=== PATIENT | female | born 1970 | race Caucasian/White ===

== ENCOUNTER 2017-05-24 23:43 | Inpatient (IN) | payer MEDICARE, MEDICAID ==
[~2017-05-24] VITALS: Ht 154.9 cm; Wt 71.2 kg
[~2017-05-24 23:43] MED LIST: ALD25T PO; CAP25T PO; CARV-50 PO; CIP250T PO; CIP500T PO; FOLI-43 PO; FURO40TA4 PO; HYDR-3566 PO; MULT-1074 PO; ONDA4TAB6 PO; PHEN-873 PO; POTA20TA19 PO
[2017-05-25 00:24] LABS: BASOPHILS % (AUTO) 0.5 % (0-1); EOSINOPHILS # (AUTO) 0.5 X10'3 (0-0.9); EOSINOPHILS % (AUTO) 7.2 % (0-6); HEMATOCRIT 33.4 % (35.0-45.0); HEMOGLOBIN 11.3 g/dl (12.0-16.0); LYMPHOCYTES # (AUTO) 2.8 X10'3 (1.1-4.8); LYMPHOCYTES % (AUTO) 41.8 % (21-51); MEAN CORPUSCULAR HEMOGLOBIN 34.6 PG (27.0-31.0); MEAN CORPUSCULAR HGB CONC 33.9 % (33.0-36.5); MEAN CORPUSCULAR VOLUME 102.1 FL (78-98); MEAN PLATELET VOLUME 9.5 FL (7.4-10.4); MONOCYTES # (AUTO) 0.4 X10'3 (0-0.9); MONOCYTES % (AUTO) 6.6 % (2-12); NEUTROPHILS # (AUTO) 2.9 X10'3 (1.8-7.7); NEUTROPHILS % (AUTO) 43.9 % (42-75); PLATELET COUNT 178 X10'3 (140-440); RED BLOOD COUNT 3.27 X10'6 (4.20-5.60); RED CELL DISTRIBUTION WIDTH 13.2 % (11.5-14.5); WHITE BLOOD COUNT 6.7 X10'3 (4.5-11.0)
[2017-05-25 00:44] LABS: ALANINE AMINOTRANSFERASE 80 U/L (12-78); ALBUMIN 3.8 G/DL (3.4-5.0); ALBUMIN/GLOBULIN RATIO 1.1 (1.1-1.5); ALKALINE PHOSPHATASE 90 IU/L (46-116); ANION GAP 5 (8-16); ASPARTATE AMINO TRANSFERASE 45 U/L (10-37); BILIRUBIN,TOTAL 0.4 MG/DL (0.1-1.0); BLOOD UREA NITROGEN 25 MG/DL (7-18); CALCIUM 8.8 MG/DL (8.5-10.1); CHLORIDE 105 MMOL/L (99-107); CREATININE 1.39 MG/DL (0.40-0.90); GLUCOSE 103 MG/DL (70-104); PARTIAL THROMBOPLASTIN TIME 24 SECONDS (22-32); POTASSIUM 4.1 MMOL/L (3.5-5.1); PROTHROMBIN TIME 10.5 SECONDS (9.0-12.0); SODIUM 141 MMOL/L (135-145); TOTAL PROTEIN 7.2 G/DL (6.4-8.2); eGFR 41 ML/MIN
[2017-05-25 00:47] LABS: CLARITY,URINE Clear (Clear); COLOR,URINE Yellow (Yellow); GLUCOSE, URINE Negative (Neg); KETONES,URINE Negative (Neg); LEUKOCYTE ESTERASE ,URINE Negative (Neg); NITRITES, URINE Negative (Neg); OCCULT BLOOD,URINE Negative (Neg); PROTEIN,URINE Negative (Neg)
[2017-05-25 00:48] LABS: UA COLLECTION TYPE CLN CATCH MIDSTREAM
[2017-05-25 01:00] LABS: URINE HCG NEGATIVE (NEG)
[2017-05-25 02:40] LABS: LIPASE 290 U/L (73-393)
[2017-05-25] MEDS ORDERED: furosemide 10 MG/1 ML 10ml inj IV ONE (03:45)
[2017-05-25] MEDS ORDERED: acetaminophen 325mg tablet PO PRN (08:15)
[2017-05-25] MEDS ORDERED: HYDROcodone/acetaminophen 5mg/325mg tablet PO PRN (08:15)
[2017-05-25] MEDS ORDERED: potassium Cl 40MEQ/NS 500ml 500 ML IV PRN ×2 (08:15)
[2017-05-25] MEDS ORDERED: magnesium hydroxide 30ml (MOM) UD suspension PO PRN (08:15)
[2017-05-25] MEDS ORDERED: magnesium 2GM in 50ml NS 50 ML IV PRN (08:15)
[2017-05-25] MEDS ORDERED: magnesium Cl slow-release 64mg tablet PO PRN (08:15)
[2017-05-25] MEDS ORDERED: HYDROcodone/acetaminophen 10/325mg tab PO PRN (08:15)
[2017-05-25] MEDS ORDERED: magnesium 4gm in 100ml NS 100 ML IV PRN (08:15)
[2017-05-25] MEDS ORDERED: SINCALIDE IV ONE (08:15)
[2017-05-25] MEDS ORDERED: albuterol 2.5 MG/3 ML nebule NEB PRN (08:15)
[2017-05-25] MEDS ORDERED: NORMAL SALINE IV ONE (08:15)
[2017-05-25] MEDS ORDERED: ondansetron/PF 4mg/2ml inj IV PRN (08:15)
[2017-05-25] MEDS ORDERED: potassium Cl 20 mEq SR tablet PO PRN ×2 (08:15)
[2017-05-25] MEDS ORDERED: mag hydrox/Alum hydrox/simeth 30ml oral suspension PO PRN (08:15)
[2017-05-25] MEDS ORDERED: lisinopril 20mg tablet PO SCH (08:36)
[2017-05-25] MEDS ORDERED: carVEDilol 12.5mg tablet PO ONE ×2 (08:40→13:15)
[2017-05-25] MEDS ORDERED: spironolactone 25 MG tablet PO ONE (08:40)
[2017-05-25 09:30] VITALS: BP 91/48
[2017-05-25] MEDS ORDERED: furosemide 40mg tablet PO SCH (13:00)
[2017-05-25 13:30] VITALS: BP_SYST 80; BP_SYST 82; BP_DIAS 42; BP_DIAS 53
[2017-05-25 15:15] VITALS: BP 94/55
[2017-05-25 17:15] VITALS: BP 94/55
[2017-05-25] MEDS ORDERED: heparin, porcine 5000 units/ml vial SQ SCH (20:00)
[2017-05-25] MEDS ORDERED: potassium Cl 20 mEq SR tablet PO SCH (20:00)
[2017-05-25] MEDS ORDERED: carVEDilol 12.5mg tablet PO SCH (20:00)
[2017-05-26] MEDS ORDERED: multivitamins, therapeutics tablet PO SCH (08:00)
[2017-05-26] MEDS ORDERED: spironolactone 25 MG tablet PO SCH (08:00)
[2017-05-26] MEDS ORDERED: K and/or MAG REPLACEMENT MC SCH (08:00)
[2017-05-26] MEDS ORDERED: folic acid 1mg tablet PO SCH (08:00)
== END 2017-05-25 17:20 | disposition home or self-care (01) | DRG 291 ==
LOC: ER 23:43 → ED HOLD 05-25 08:15 → PCU 3S 05-25 09:20
PROVIDERS: ADMIT Internal Medicine; ATTEND Internal Medicine
PROC: CF141ZZ Planar Nuclear Medicine Imaging of Gallbladder using Technetium 99m (Tc-99m) (ICD-10-PCS; principal; 2017-05-25)
DX: I13.0 Hypertensive heart and chronic kidney disease with heart failure and stage 1 through stage 4 chronic kidney disease, or unspecified chronic kidney disease (principal); I50.23 Acute on chronic systolic (congestive) heart failure; N17.9 Acute kidney failure, unspecified; D64.9 Anemia, unspecified; R10.9 Unspecified abdominal pain; I25.10 Atherosclerotic heart disease of native coronary artery without angina pectoris; N18.9 Chronic kidney disease, unspecified; Z95.810 Presence of automatic (implantable) cardiac defibrillator; I25.2 Old myocardial infarction; Z79.899 Other long term (current) drug therapy; Z87.440 Personal history of urinary (tract) infections; Z87.442 Personal history of urinary calculi; Z87.891 Personal history of nicotine dependence
CPT/HCPCS: 36415; 71010; 74176; 76700; 78227; 80053; 81003; 81025; 83690; 83880; 84484; 85025; 85610; 85730; 93005; 93306; 96374; 99285; A9537; J1940

== ENCOUNTER 2017-06-09 19:03 | Emergency (ER) | payer MEDICARE, MEDICAID ==
[~2017-06-09] VITALS: Ht 172.7 cm; Wt 68.1 kg
[~2017-06-09 19:03] MED LIST changes: -CIP250T PO; -CIP500T PO
[2017-06-09 19:35] LABS: CLARITY,URINE CLOUDY (Clear); COLOR,URINE AMBER (Yellow); GLUCOSE, URINE NEGATIVE (Neg); KETONES,URINE TRACE mg/dl (Neg); LEUKOCYTE ESTERASE ,URINE MODERATE (Neg); NITRITES, URINE NEGATIVE (Neg); OCCULT BLOOD,URINE LARGE (Neg); PH,URINE 5.5 (4.8-8.0); PROTEIN,URINE 100 mg/dl (Neg); URINE HCG NEGATIVE (NEG)
[2017-06-09 19:41] LABS: UA COLLECTION TYPE CLN CATCH MIDSTREAM
[2017-06-09] MEDS ORDERED: NITR100C PO (19:41)
[2017-06-09 19:49] LABS: BACTERIA,URINE 3+ /HPF (Neg); RBC,URINE TNTC /HPF (0-2); WBC,URINE 50-100 /HPF (0-4)
[2017-06-09 19:50] LABS: SQUAMOUS EPITHELIAL CELL,UR FEW /LPF (FEW)
[2017-06-09 20:11] VITALS: BP 93/48
== END 2017-06-09 20:13 | disposition home or self-care (01) ==
LOC: ER 19:05
DX: N39.0 Urinary tract infection, site not specified (principal); I50.9 Heart failure, unspecified; I25.2 Old myocardial infarction; Z87.442 Personal history of urinary calculi; Z96.89 Presence of other specified functional implants; Z79.899 Other long term (current) drug therapy
CPT/HCPCS: 81001; 81025; 87088; 99284